=== PATIENT | male | born 1990 | race Caucasian/White ===

== ENCOUNTER 2017-09-06 17:24 | Emergency (ER) | payer SELFPAY ==
[~2017-09-06] VITALS: Ht 188 cm; Wt 97.5 kg
[2017-09-06 17:35] VITALS: BP 154/94
== END 2017-09-06 17:35 | disposition home or self-care (01) ==
LOC: ER 17:24
DX: S30.861A Insect bite (nonvenomous) of abdominal wall, initial encounter (principal); W57.XXXA Bitten or stung by nonvenomous insect and other nonvenomous arthropods, initial encounter; T78.49XA Other allergy, initial encounter
CPT/HCPCS: 99282

== ENCOUNTER 2017-11-04 00:03 | Emergency (ER) | payer SELFPAY ==
[~2017-11-04] VITALS: Ht 188 cm; Wt 97.5 kg
== END 2017-11-04 01:02 | disposition home or self-care (01) ==
LOC: ER 00:03
DX: J30.1 Allergic rhinitis due to pollen (principal); H92.09 Otalgia, unspecified ear
CPT/HCPCS: 99282

== ENCOUNTER 2017-11-15 10:49 | Emergency (ER) | payer SELFPAY ==
[~2017-11-15] VITALS: Ht 188 cm; Wt 97.5 kg
--- OUTSIDE RECORDS SUMMARY | 2017-11-15 10:51 | XMS REPORT | Continuity of Care Document ---
Author Author [facility] Organization [facility] Address [address] [place] [address] Phone Unavailable Care Team Providers Care Health Sciences Department Chair Name Role Phone NO, PCP PCP Unavailable Insurance Providers Guarantor Enmanuel Ruiz Address [address] [place] [address] Email [email or web address] Cigna o Policy Number [id number] Subscriber's Name Enmanuel Ruiz Relationship 18 Self / Same As Patient Group Number [id number] Group Name CHARLY HATHAWAY Effective Date 07 Advance Directives Directive Response Recorded Date/Time Does the patient have an advance directive? No 08/25/08 10:17pm If yes, is advance directive on file with [facility]? No 08/25/08 10:17pm If not on file with [facility] will patient provide a copy? No 09/06/17 6:19pm Do you have a Directive to Physician? No 11/04/17 12:24am Do you have a Medical Power of Finishing Range Supervisor? No 11/04/17 12:24am Do you have an out of hospital Do Not Resuscitate Order? No 11/04/17 12:24am Do you have any special needs we should be aware of? No 11/04/17 12:24am Do you have a support person here with you today? No 11/04/17 12:24am Did patient receive Notice of Privacy Practices? Yes 11/04/17 12:24am Did patient receive patient rights and responsibilities? Yes 11/04/17 12:24am Problems No problem information available. Medications No medication information available. Social History Smoking Status Start Date Stop Date Never Smoker Hospital Discharge Instructions No hospital discharge instruction information available. Plan of Care Discharge Date 11/04/17 1:02am Disposition HOME, SELF-CARE Condition at Discharge Stable Instructions/Education Provided Hay Fever Forms Provided Work/School Excuse Prescriptions See Medication Section Additional Instructions/Education TAKE OVER THE COUNTER ANTIHISTAMINE AND USE DIRECTED Functional Status No functional status information available. Allergies, Adverse Reactions, Alerts No known allergies. Immunizations No immunization information available. Vital Signs Acute Vital Signs Vital Response Date/Time Temperature (Fahrenheit) 99.0 degrees F (97.6 - 99.5) 09/06/2017 5:35pm Pulse Pulse Rate (adult) 93 bpm (60 - 90) 09/06/2017 5:35pm Respiratory Rate 18 bpm (12 - 24) 09/06/2017 5:35pm Blood Pressure 154/94 mm Hg 09/06/2017 5:35pm Height 6 ft 2 in 11/04/2017 12:28am Weight 215 lb 11/04/2017 12:28am Body Mass Index 27.6 kg/m^2 11/04/2017 12:28am Results No relevant diagnostic test, laboratory data and/or discharge summary information available. Procedures No procedure information available. Encounters Encounter Location Arrival/Admit Date Discharge/Depart Date Attending Provider Departed Emergency Room [facility] 11/04/17 12:03am 11/04 1:02am SOLE LABOY MD Departed Emergency Room [facility] 09/06/17 5:24pm 5:35pm SARA NEWSOME MD
[2017-11-15] MEDS ORDERED: TETRACAINE HCL 0.5% OPTH SOLN 4 ML BTL OP ONE (11:00)
[2017-11-15] MEDS ORDERED: FLUORESCEIN SOD(OPTH) 1 MG STRP OP ONE (11:00)
== END 2017-11-15 11:20 | disposition home or self-care (01) ==
LOC: ER 10:49
DX: H10.32 Unspecified acute conjunctivitis, left eye (principal)
CPT/HCPCS: 99282

== ENCOUNTER 2021-07-14 14:01 | Emergency (ER) | payer OTHER ==
[~2021-07-14] VITALS: Ht 190.5 cm; Wt 95.3 kg
== END 2021-07-14 15:39 | disposition home or self-care (01) ==
LOC: ER 14:15
DX: U07.1 COVID-19 (principal); R50.9 Fever, unspecified; R05.9 Cough, unspecified; I10 Essential (primary) hypertension; F43.10 Post-traumatic stress disorder, unspecified
CPT/HCPCS: 94799; 99283; U0002

== ENCOUNTER 2021-07-24 12:36 | Emergency (ER) | payer OTHER ==
[~2021-07-24] VITALS: Ht 190.5 cm; Wt 95.3 kg
[2021-07-24] MEDS ORDERED: CLONAZEPAM 1 MG TAB PO NR (13:45)
== END 2021-07-24 14:50 | disposition home or self-care (01) ==
LOC: ER 12:57
DX: F41.0 Panic disorder [episodic paroxysmal anxiety] (principal); I10 Essential (primary) hypertension; F43.10 Post-traumatic stress disorder, unspecified
CPT/HCPCS: 99283

== ENCOUNTER 2021-11-14 16:51 | Emergency (ER) | payer OTHER ==
[~2021-11-14] VITALS: Ht 190.5 cm; Wt 95.3 kg
[2021-11-14] MEDS ORDERED: METHOCARBAMOL750 MG PO (17:15)
[2021-11-14] MEDS ORDERED: KETOROLAC TROME10 MG PEG (17:15)
[2021-11-14] MEDS ORDERED: PREDNISONE50 MG PO (17:15)
== END 2021-11-14 17:22 | disposition home or self-care (01) ==
LOC: ER 17:19
DX: M54.12 Radiculopathy, cervical region (principal); I10 Essential (primary) hypertension; F43.10 Post-traumatic stress disorder, unspecified; F41.9 Anxiety disorder, unspecified
CPT/HCPCS: 99283

== ENCOUNTER 2021-12-27 15:35 | Emergency (ER) | payer BC, OTHER ==
[~2021-12-27] VITALS: Ht 190.5 cm; Wt 95.3 kg
[~2021-12-27 15:35] MED LIST: KETOROLAC TROME10 MG PEG; METHOCARBAMOL750 MG PO; PREDNISONE50 MG PO
[2021-12-27 16:17] LABS: BASOPHILS # (AUTO) 0.1 (0.0-0.1); BASOPHILS % 0.8 % (0.0-1.0); EOSINOPHILS % 0.6 % (0.0-6.0); HEMATOCRIT 48.2 % (38.2-49.6); HEMOGLOBIN 16.6 g/dL (14.0-18.0); LYMPHOCYTES # (AUTO) 1.9 (1.0-3.2); LYMPHOCYTES % 31.1 % (18.0-39.1); MEAN CORPUSCULAR HEMOGLOBIN 31.7 pg (28-32); MEAN CORPUSCULAR HGB CONC 34.4 g/dL (31-35); MEAN CORPUSCULAR VOLUME 92.2 fL (81-99); MONOCYTES # (AUTO) 0.4 (0.2-0.8); MONOCYTES % 6.3 % (4.4-11.3); NEUTROPHILS # (AUTO) 3.7 (2.1-6.9); NEUTROPHILS % 60.7 % (38.7-80.0); PLATELET COUNT 243 x10e3/uL (140-360); RED BLOOD COUNT 5.23 x10e6/uL (4.3-5.7); RED CELL DISTRIBUTION WIDTH 11.9 % (11.7-14.4)
[2021-12-27 16:35] LABS: ALANINE AMINOTRANSFERASE 97 IU/L (0-55); ALBUMIN 4.1 g/dL (3.5-5.0); ALBUMIN/GLOBULIN RATIO 1.1 (0.8-2.0); ALKALINE PHOSPHATASE 49 IU/L (40-150); ANION GAP 17.7 mmol/L (8-16); BLOOD UREA NITROGEN 11 mg/dL (7-26); BUN/CREATININE RATIO 12 (6-25); CALCIUM 9.8 mg/dL (8.4-10.2); CARBON DIOXIDE 27 mmol/L (22-29); CHLORIDE 102 mmol/L (98-107); CREATINE KINASE 83 IU/L (30-200); CREATININE, SERUM 0.91 mg/dL (0.72-1.25); GLUCOSE 134 mg/dL (74-118); POTASSIUM 3.7 mmol/L (3.5-5.1); SODIUM 143 mmol/L (136-145)
[2021-12-27 16:56] LABS: THYROID STIMULATING HORMONE 1.495 uIU/mL (0.350-4.940)
== END 2021-12-27 17:48 | disposition home or self-care (01) ==
LOC: ER 16:00
DX: R07.9 Chest pain, unspecified (principal); I10 Essential (primary) hypertension; F41.9 Anxiety disorder, unspecified; F43.10 Post-traumatic stress disorder, unspecified; R94.31 Abnormal electrocardiogram [ECG] [EKG]
CPT/HCPCS: 36415; 71045; 80053; 82550; 82553; 83690; 84443; 84484; 85025; 93005; 99284

== ENCOUNTER 2022-03-31 10:33 | Emergency (ER) | payer BC, OTHER ==
[~2022-03-31] VITALS: Ht 190.5 cm; Wt 95.3 kg
== END 2022-03-31 12:55 | disposition home or self-care (01) ==
LOC: ER 10:46
DX: M25.571 Pain in right ankle and joints of right foot (principal); S93.491A Sprain of other ligament of right ankle, initial encounter; X50.1XXA Overexertion from prolonged static or awkward postures, initial encounter; Y93.01 Activity, walking, marching and hiking; Y92.89 Other specified places as the place of occurrence of the external cause; I10 Essential (primary) hypertension; F43.10 Post-traumatic stress disorder, unspecified; F41.0 Panic disorder [episodic paroxysmal anxiety]
CPT/HCPCS: 99283